=== PATIENT | male | born 2000 | race Two or more races ===

== ENCOUNTER 2023-08-16 08:16 | Day surgery (SDC) | payer BC ==
[~2023-08-16] VITALS: Ht 172.7 cm; Wt 122.5 kg
[2023-08-16] MEDS ORDERED: PROPOFOL 10 MG/ML 20 ML IV ONE (08:28)
[2023-08-16] MEDS ORDERED: GLYCOPYRROLATE 0.2 MG/ML 1ML VIAL ONE (08:28)
[2023-08-16] MEDS ORDERED: LIDOCAINE 2% (LOCAL ANESTH.) PF 5ml SDV ONE (08:29)
[2023-08-16] MEDS ORDERED: ONDANSETRON HCL 4 MG/2 ML VIAL ONE (08:29)
[2023-08-16] MEDS ORDERED: KETOROLAC TROMETH 30 MG/ML 1ML VIAL ONE (08:29)
[2023-08-16] MEDS ORDERED: DexAMETHasone SOD PHOS 10MG/1ML VIAL INJ ONE ×2 (08:29→08:34)
[2023-08-16] MEDS ORDERED: LIDOCAINE 1% INJ PF 5ML AMP ONE (08:29)
[2023-08-16] MEDS ORDERED: fentaNYL CITRATE 100 MCG/2 ML VL ONE (08:30)
[2023-08-16] MEDS ORDERED: KETAMINE 50mg/ML 1ml syringe ONE (08:30)
[2023-08-16] MEDS ORDERED: SODIUM CHLORIDE LOCK 10 ML ONE (08:34)
[2023-08-16] MEDS ORDERED: ceFAZolin 2 GM/D5W50ml 50 ML IV ONE (09:02)
[2023-08-16 09:08] VITALS: TEMP 98.4
[2023-08-16] MEDS: GABAPENTIN 400 MG CAP PO ONE (09:10)
[2023-08-16] MEDS: CELECOXIB 100 MG CAP PO ONE (09:10)
[2023-08-16] MEDS: ACETAMINOPHEN IV 1000 MG/100ML (10MG/ML) IV ONE (09:10)
[2023-08-16] MEDS ORDERED: CELECOXIB 100 MG CAP ONE (09:24)
[2023-08-16] MEDS ORDERED: GABAPENTIN 400 MG CAP ONE (09:24)
[2023-08-16] MEDS ORDERED: ACETAMINOPHEN IV 100 ML IV ONE (09:25)
[2023-08-16] MEDS ORDERED: DexAMETHasone SOD PHOS 4 MG/1ML SDV INJ ONE (09:26)
[2023-08-16] MEDS ORDERED: ceFAZolin 1GM VL ONE (09:59)
[2023-08-16] MEDS: BUPIVACAINE 0.25% INJ 50ML VIAL ONE (11:27)
[2023-08-16 11:52] VITALS: PULSE 85; RESP 23; O2SAT 94
[2023-08-16] MEDS ORDERED: FLUMAZENIL 0.1 MG/ML INJ 10ML MDV IV PRN (12:00)
[2023-08-16] MEDS ORDERED: ePHEDrine SULFATE 50 MG/ML AMP IV PRN (12:00)
[2023-08-16] MEDS ORDERED: LABETALOL HCL 5 MG/ML 4ML SYRINGE IV PRN (12:00)
[2023-08-16] MEDS ORDERED: hydrALAZINE HCL 20 MG/ML VL IV PRN (12:00)
[2023-08-16] MEDS ORDERED: NALOXONE HCL 0.4 MG/ML VIAL IV PRN (12:00)
[2023-08-16] MEDS ORDERED: fentaNYL CITRATE 100 MCG/2 ML VL IV PRN (12:00)
[2023-08-16] MEDS ORDERED: ONDANSETRON HCL 4 MG/2 ML VIAL IV PRN (12:00)
[2023-08-16] MEDS ORDERED: oxyCODONE HCL 5MG TAB PO PRN (12:00)
[2023-08-16] MEDS ORDERED: HYDROmorphone HCL 2 MG/ML VL/or syr IV PRN (12:00)
[2023-08-16 12:35] VITALS: O2SAT 93
[2023-08-16] MEDS: HYDROmorphone HCL 2 MG/ML VL/or syr IV ONE (12:44)
[2023-08-16 13:10] VITALS: BP 146/73; PULSE 77; RESP 97
== END 2023-08-16 14:15 | disposition home or self-care (01) ==
LOC: SUR 08:16
PROVIDERS: ATTEND Orthopaedic Surgery Sports Medicine
DX: S82.841B Displaced bimalleolar fracture of right lower leg, initial encounter for open fracture type I or II (principal); E66.01 Morbid (severe) obesity due to excess calories; Z68.41 Body mass index [BMI] 40.0-44.9, adult; Z87.891 Personal history of nicotine dependence; Z79.899 Other long term (current) drug therapy; Z98.890 Other specified postprocedural states; X58.XXXA Exposure to other specified factors, initial encounter; Y93.89 Activity, other specified; Y92.89 Other specified places as the place of occurrence of the external cause; Y99.8 Other external cause status
CPT/HCPCS: 27814; 73600; C1713; J0131; J0690; J1100; J1170; J1885; J2001; J2405; J2704; J3010; J3490; 76000